=== PATIENT | female | born 1960 | race Caucasian/White ===

== ENCOUNTER → 2016-11-07 | Outpatient (CLI) | payer OTHER ==
--- NOTE | 2016-11-07 08:46 | REP ---
Clinical: Abnormal liver function tests. Technique: Real time nolen scale ultrasound examination using curved array transducer. Findings: The patient is status post cholecystectomy. The liver demonstrates diffuse fatty infiltration without focal hepatic lesion identified. The pancreas is incompletely evaluated due to interposed bowel gas and poor through transmission. No biliary ductal dilatation is appreciated and the common bile duct measures 3.8 mm diameter. Right kidney measures 12.8 x 5.3 x 5.3 cm without hydronephrosis. No obvious ascites. Impression: Fatty infiltration to the liver without focal hepatic lesion identified. Signed by Delroy Kim MD 11/07/2016 08:38 A
== END ==
LOC: M RAD 07:55
PROVIDERS: ATTEND Internal Medicine Cardiovascular Disease
DX: R79.89 Other specified abnormal findings of blood chemistry (principal)

== ENCOUNTER 2025-02-09 05:49 | Emergency (ER) | payer OTHER ==
[~2025-02-09] VITALS: Ht 165.1 cm; Wt 104.1 kg
[2025-02-09] MEDS: NS (Normal Saline) 0.9% 1,000 ML IV ONE (09:02)
[2025-02-09] MEDS: MORPHINE 4 MG/ML 1 ML VIAL IV ONE (09:02)
[2025-02-09 09:16] LABS: BASO # 0.0 10^3/uL (0.0-0.2); BASO % 0.2 % (0.0-1.0); EOS # 0.0 10^3/uL (0.0-0.5); EOS % 0.0 % (0.0-3.0); LYMPH # 1.8 10^3/uL (1.5-5.0); LYMPH % 15.2 % (24.0-44.0); MONO # 0.6 10^3/uL (0.0-0.8); MONO % 5.3 % (2.0-8.0); NEUTROPHILS # 9.2 10^3/uL (1.5-8.5); NEUTROPHILS % 79.0 % (36.0-66.0); PLATELET COUNT, AUTOMATED 344 10^3/uL (150-450)
[2025-02-09 09:40] LABS: ALT/SGPT 27.0 U/L (7.0-40); AST/SGOT 27.0 U/L (<34); CALCIUM LEVEL 8.8 MG/DL (8.3-10.6); CARBON DIOXIDE LEVEL 25.0 MMOL/L (20-31); CHLORIDE LEVEL 108.0 MMOL/L (98-107); CREATININE FOR GFR 1.65 MG/DL (0.55-1.30); GLOMERULAR FILTRATION RATE 34.9 (>45); POTASSIUM SERUM 4.5 MMOL/L (3.5-5.1); SODIUM LEVEL 144.0 MMOL/L (136-145)
[2025-02-09] MEDS ORDERED: ISOVUE-370 76% 100 ML VIAL As Ordered ONE (11:24)
[2025-02-09 12:22] LABS: KETONE, URINE AUTO RFX NEGATIVE (NEGATIVE); LEUKOCYTE ESTERASE UR AUTO RFX NEGATIVE (NEGATIVE); MUCUS, URINE RFX SMALL (NEGATIVE); NITRITE, URINE AUTO RFX NEGATIVE (NEGATIVE); RBC, URINE AUTO RFX 133 /HPF (0-3); SQUAM EPITHELIAL CELL UR AURFX 2 /HPF (0-6); WBC, URINE AUTO RFX 7 /HPF (0-3); YEAST LIKE CELL URINE AUTO RFX SMALL
[2025-02-09 13:45] VITALS: BP 163/77; TEMP 97.7; O2SAT 97
[2025-02-09] MEDS ORDERED: ONDA-282 PO (13:46)
[2025-02-09] MEDS ORDERED: TAMS-18 PO (13:46)
== END 2025-02-09 14:08 | disposition home or self-care (01) ==
LOC: M ED 05:49
DX: N20.1 Calculus of ureter (principal); K57.30 Diverticulosis of large intestine without perforation or abscess without bleeding; M47.896 Other spondylosis, lumbar region; M51.379 Other intervertebral disc degeneration, lumbosacral region without mention of lumbar back pain or lower extremity pain; E11.9 Type 2 diabetes mellitus without complications; I10 Essential (primary) hypertension; K58.9 Irritable bowel syndrome, unspecified; Z88.0 Allergy status to penicillin; Z88.1 Allergy status to other antibiotic agents
CPT/HCPCS: 74177; 80048; 80076; 81001; 83605; 83690; 85025; 93005; 96361; 96374; 96375; 99284; J2765; Q9967